=== PATIENT | female | born 1975 ===

== ENCOUNTER 2016-11-04 16:01 | Emergency (ER) | payer MEDICAID ==
[2016-11-04 16:01] VITALS: BMI 36.3
--- NOTE | 2016-11-04 17:29 | C.PDOC ---
History Of Present Illness 41 y/o female presents to the ED for evaluation of lower abdominal pain which began 3 days ago. Patient notes her pain radiates to her back with occasional nausea, frequency and dysuria. Patient denies fever, chills, and vomiting. denies vaginl discharge. Time Seen by Provider: 11/04/16 16:12 Chief Complaint (Nursing): Female Genitourinary History Per: Patient History/Exam Limitations: no limitations Onset/Duration Of Symptoms: Days Current Symptoms Are (Timing): Still Present Quality Of Discomfort: "Pain" Associated Symptoms: Nausea, Urinary Symptoms (+urinary frequency and dysuria ) . denies: Fever, Chills, Vomiting Additional History Per: Patient Abnormal Vaginal Bleeding: No Past Medical History Reviewed: Historical Data, Nursing Documentation, Vital Signs Vital Signs: Last Vital Signs Temp 98.7 F 11/04/16 16:11 Pulse 115 H 11/04/16 16:11 Resp 15 11/04/16 16:11 BP 127/83 11/04/16 16:11 Pulse Ox 99 11/04/16 21:07 - Medical History PMH: Anxiety, HTN (pt denies) Surgical History: (x 3) - [facility] Procedures BILAT TUBAL DIVISION NEC (09/28/13) LOW CERVICAL (09/28/13) Family History: States: No Known Family Hx - Social History Hx Tobacco Use: No Hx Alcohol Use: No Hx Substance Use: No - Immunization History Hx Tetanus Toxoid Vaccination: Yes Hx Influenza Vaccination: No Hx Pneumococcal Vaccination: No Review Of Systems Constitutional: Negative for: Fever, Chills Gastrointestinal: Positive for: Nausea, Abdominal Pain (lower ). Negative for: Vomiting Genitourinary: Positive for: Dysuria, Frequency Physical Exam - Physical Exam Appears: Non-toxic, No Acute Distress Skin: Normal Color, Warm, Dry Head: Atraumatic, Normacephalic Eye(s): bilateral: Normal Inspection Oral Mucosa: Moist Neck: Supple Chest: Symmetrical, No Deformity, No Tenderness Cardiovascular: Rhythm Regular, No Murmur Respiratory: Normal Breath Sounds, Accessory Muscle Use, No Rales, No Rhonchi, No Wheezing Gastrointestinal/Abdominal: Soft, Tenderness (suprapubic), No Guarding, No Rebound Back: CVA Tenderness (mild, right-sided ) Pelvic: No Normal Bimanual Exam, No Vaginal Bleeding, Vaginal Discharge, Cervical Motion Tenderness, Adnexal Tenderness, Other (bilateral adnexal tenderness, whitish discharge, +cmt) Extremity: Normal ROM, Capillary Refill (less than 2 seconds ) Neurological/Psych: Normal Speech, Normal Cognition Gait: Steady ED Course And Treatment - Laboratory Results Result Diagrams: 11/04/16 18:55 11/04/16 18:55 O2 Sat by Pulse Oximetry: 99 (on RA) Pulse Ox Interpretation: Normal - CT Scan/US CT A/P Other Rad Studies (CT/US): Interpreted By Me, Read By Radiologist, Radiology Report Reviewed CT/US Interpretation: EXAM: CT Abdomen and Pelvis Without Intravenous Contrast. CLINICAL HISTORY: 41 years old, female; Pain and signs and symptoms ; Other: Hematuria; Abdominal pain;. Generalized; Additional info: Hematuria CVA tender. TECHNIQUE: Axial computed tomography images of the abdomen and pelvis without intravenous contrast. This. CT exam was performed using one or more of the following dose reduction techniques: automated. exposure control, adjustment of the mA and/or kV according to patient size, and/or use of iterative. reconstruction technique. Coronal and sagittal reformatted images were created and reviewed. EXAM DATE/TIME: 11/04/2016 6:25 PM. COMPARISON: There are no prior studies for comparison. FINDINGS: Lower thorax: Heart size is normal. There is a small hiatal hernia. There is minimal atelectasis and. scarring at the lung bases. ABDOMEN: Liver: unremarkable. Gallbladder and bile ducts: unremarkable. Pancreas: Pancreas is mildly atrophic. Spleen: unremarkable. Adrenals: unremarkable. Kidneys and ureters: Kidneys and ureters are unremarkable. Stomach and bowel: Stomach is almost empty. Rotation is normal. There is no small bowel. obstruction. Terminal ileum is unremarkable.Appendix is not visualized.There is no pericecal. inflammation.Colon is incompletely distended which limits evaluation. Appendix : See stomach and bowel. PELVIS: Bladder: Urinary bladder is unremarkable. Reproductive: Uterus and adnexal structures are unremarkable. ABDOMEN and PELVIS: Intraperitoneal space: There is a small amount of free fluid in the pelvis There is no free air. Bones/joints: There are no acute osseous abnormalities. There is minimal spondylosis. Soft tissues: There is a small fat containing umbilical hernia. Vasculature: There are multiple phleboliths. Vascular structures are unremarkable. Lymph nodes: There is no pathologic adenopathy. IMPRESSION: No renal or ureteral stones or hydronephrosis; limited evaluation of kidneys due to. lack of intravenous contrast; no acute solid visceral or bowel abnormality. Medical Decision Making Medical Decision Making: Impression 41y/o F with lower abdominal pain, nausea, urinary frequency Plan: * CT Abd/Pel * CMP * CBC * Toradol * Urine culture * Urinalysis * Reassess and Disposition Progress: cT A/P ordered to evaluate for possible renal or urethral stones. 909 pm pt with cmt on pelivc exam, will tx for pid with ceftriaxone and doxycycline. pt to f/u with gynb later in week for re-eval. Disposition Counseled Patient/Family Regarding: Diagnosis, Need For Followup, Rx Given - Disposition Referrals: Charley Hernandez MD [Medical Doctor] - Disposition: HOME/ ROUTINE Disposition Time: 21:15 Condition: STABLE Additional Instructions: Siga con el Dr Hernandez o mendoza gineclogo en los prximos 2-3 townsend despus de milad la medicacin para la re-evaluacin. El antibitico prescrbied hace la piel de oyur sensible al mariano as que por favor use protector solar cuando est afuera con gustavo medcine. Vuelva al ER para cualquier empeoramiento de los sntomas. Prescriptions: Doxycycline Hyclate 100 mg PO BID #28 capsule Instructions: Pelvic Inflammatory Disease (ED) Forms: Gen Discharge Inst [facility] - Clinical Impression Clinical Impression: PID (acute pelvic inflammatory disease) - Scribe Statement The provider has reviewed the documentation as recorded by the Scribe (Gabrielle Richmond) All medical record entries made by the Scribe were at my direction and personally dictated by me. I have reviewed the chart and agree that the record accurately reflects my personal performance of the history, physical exam, medical decision making, and the department course for this patient. I have also personally directed, reviewed, and agree with the discharge instructions and disposition.
[2016-11-04 17:47] LABS: RBC URINE 13 /hpf (0-3); URINE BILIRUBIN NEGATIVE (NEGATIVE); URINE BLOOD 2+ (NEGATIVE); URINE COLOR Yellow (YELLOW); URINE GLUCOSE (UA) NORMAL (Normal); URINE KETONE NEGATIVE (NEGATIVE); URINE LEUKOCYTE ESTERASE NEG Leu/uL (Negative); URINE PROTEIN NEGATIVE (NEGATIVE); URINE UROBILINOGEN NORMAL mg/dL (0.2-1.0); WBC URINE 1 /hpf (0-5)
[2016-11-04 19:07] LABS: BASO % 0.4 % (0.0-2.0); EOS # 0.1 K/uL (0.0-0.7); EOS % 1.2 % (0.0-4.0); HEMATOCRIT 42.2 % (34.0-47.0); LYMPH # 3.5 K/uL (1.0-4.3); LYMPH % 40.4 % (20.0-40.0); MEAN CELL VOLUME 84.1 fL (81.0-99.0); MEAN CORPUSCULAR HEMOGLOBIN 27.3 pg (27.0-31.0); MEAN CORPUSCULAR HGB CONC 32.5 g/dL (33.0-37.0); MEAN PLATELET VOLUME 8.6 fL (7.2-11.7); MONO # 0.6 K/uL (0.0-0.8); MONO % 6.8 % (0.0-10.0); RED CELL DISTRIBUTION WIDTH 13.5 % (11.5-14.5); WHITE BLOOD COUNT 8.7 K/uL (4.8-10.8)
[2016-11-04 19:20] LABS: CHLORIDE 98 mmol/L (98-107); SODIUM 138 mmol/L (132-148)
[2016-11-04 19:21] LABS: POTASSIUM 3.7 mmol/L (3.6-5.2)
[2016-11-04 19:23] LABS: ALKALINE PHOSPHATASE 76 U/L (38-126); AST/SGOT 21 U/L (14-36); BILIRUBIN,TOTAL 0.5 mg/dL (0.2-1.3); BLOOD UREA NITROGEN 16 mg/dL (7-17); CARBON DIOXIDE 28 mmol/L (22-30); GFR AFRICAN-AMERICAN > 60; GLUCOSE,RANDOM 101 mg/dL (65-105); TOTAL PROTEIN 8.4 g/dL (6.3-8.3)
[2016-11-04 19:24] LABS: ALT/SGPT 23 U/L (9-52); CALCIUM 9.1 mg/dl (8.6-10.4)
--- NOTE | 2016-11-04 19:59 | CT ---
EXAM: CT Abdomen and Pelvis Without Intravenous Contrast CLINICAL HISTORY: 41 years old, female; Pain and signs and symptoms; Other: Hematuria; Abdominal pain; Generalized; Additional info: Hematuria CVA tender TECHNIQUE: Axial computed tomography images of the abdomen and pelvis without intravenous contrast. This CT exam was performed using one or more of the following dose reduction techniques: automated exposure control, adjustment of the mA and/or kV according to patient size, and/or use of iterative reconstruction technique. Coronal and sagittal reformatted images were created and reviewed. EXAM DATE/TIME: 11/04/2016 6:25 PM COMPARISON: There are no prior studies for comparison. FINDINGS: Lower thorax: Heart size is normal. There is a small hiatal hernia. There is minimal atelectasis and scarring at the lung bases ABDOMEN: Liver: unremarkable Gallbladder and bile ducts: unremarkable Pancreas: Pancreas is mildly atrophic. Spleen: unremarkable Adrenals: unremarkable Kidneys and ureters: Kidneys and ureters are unremarkable. Stomach and bowel: Stomach is almost empty. Rotation is normal. There is no small bowel obstruction. Terminal ileum is unremarkable.Appendix is not visualized.There is no pericecal inflammation.Colon is incompletely distended which limits evaluation. Appendix: See stomach and bowel PELVIS: Bladder: Urinary bladder is unremarkable. Reproductive: Uterus and adnexal structures are unremarkable. ABDOMEN and PELVIS: Intraperitoneal space: There is a small amount of free fluid in the pelvis There is no free air. Bones/joints: There are no acute osseous abnormalities. There is minimal spondylosis Soft tissues: There is a small fat containing umbilical hernia. Vasculature: There are multiple phleboliths. Vascular structures are unremarkable. Lymph nodes: There is no pathologic adenopathy. IMPRESSION: No renal or ureteral stones or hydronephrosis; limited evaluation of kidneys due to lack of intravenous contrast; no acute solid visceral or bowel abnormality
[2016-11-04] MEDS ORDERED: cefTRIAXone (Rocephin) 250 mg Inj IM STA (21:02)
[2016-11-04] MEDS ORDERED: Lidocaine 1% Inj (20ml) ONE (21:36)
[2016-11-04 22:10] VITALS: BP 142/94; PULSE 89; RESP 20; TEMP 97.3
[2016-11-04 22:56] VITALS: O2SAT 99
== END 2016-11-04 22:00 | disposition home or self-care (01) ==
LOC: C.ER 16:01
DX: N73.9 Female pelvic inflammatory disease, unspecified (principal)
CPT/HCPCS: 74176; 80053; 81001; 85025; 87086; 96372; 96374; 99285; J0696; J1885

== ENCOUNTER 2017-02-17 18:09 | Emergency (ER) | payer MEDICAID ==
[2017-02-17 18:09] VITALS: BMI 36.3
[2017-02-17 18:19] VITALS: RESP 18; O2SAT 100
[2017-02-17 18:53] LABS: RBC URINE 5 /hpf (0-3); URINE BILIRUBIN NEGATIVE (NEGATIVE); URINE BLOOD 3+ (NEGATIVE); URINE COLOR Yellow (YELLOW); URINE GLUCOSE (UA) NORMAL (Normal); URINE KETONE NEGATIVE (NEGATIVE); URINE LEUKOCYTE ESTERASE NEG Leu/uL (Negative); URINE PROTEIN NEGATIVE (NEGATIVE); URINE UROBILINOGEN NORMAL mg/dL (0.2-1.0); WBC URINE 1 /hpf (0-5)
[2017-02-17] MEDS ORDERED: Sodium Chloride 0.9% 1,000 ML IV ONE (19:13)
[2017-02-17] MEDS ORDERED: Iohexol 240 (50 ml) PO ONE (19:16)
--- NOTE | 2017-02-17 19:19 | C.PDOC ---
History Of Present Illness 41 y/o female c/o upper abdominal pain and SOB for a month. Abdominal pain is worse after eating. Denies nausea, vomiting, diarrhea, or fever. No dysuria. No cough or chest pain. Time Seen by Provider: 02/17/17 19:16 Chief Complaint (Nursing): GI Problem History Per: Patient History/Exam Limitations: no limitations Onset/Duration Of Symptoms: Days (a month) Current Symptoms Are (Timing): Still Present Severity: Mild Location Of Pain/Discomfort: Epigastric, LUQ Radiation Of Pain To:: None Quality Of Discomfort: "Pain" Associated Symptoms: denies: Fever, Chills, Nausea, Vomiting, Diarrhea Exacerbating Factors: Food (After eating) Recent travel outside of the [place]: No Additional History Per: Patient Past Medical History Reviewed: Historical Data, Nursing Documentation, Vital Signs Vital Signs: Last Vital Signs Temp 97.7 F 02/17/17 22:00 Pulse 75 02/17/17 22:00 Resp 18 02/17/17 22:00 BP 113/77 02/17/17 22:00 Pulse Ox 100 02/17/17 22:00 - Medical History PMH: Anxiety, HTN (pt denies) Surgical History: (x 3) - [facility] Procedures BILAT TUBAL DIVISION NEC (09/28/13) LOW CERVICAL (09/28/13) Family History: States: Unknown Family Hx - Social History Hx Tobacco Use: No Hx Alcohol Use: No Hx Substance Use: No - Immunization History Hx Tetanus Toxoid Vaccination: Yes Hx Influenza Vaccination: No Hx Pneumococcal Vaccination: No Review Of Systems Except As Marked, All Systems Reviewed And Found Negative. Constitutional: Negative for: Fever, Chills Cardiovascular: Negative for: Chest Pain Respiratory: Positive for: Shortness of Breath. Negative for: Cough Gastrointestinal: Positive for: Abdominal Pain. Negative for: Nausea, Vomiting , Diarrhea Genitourinary: Negative for: Dysuria Physical Exam - Physical Exam Appears: Non-toxic, No Acute Distress Skin: Warm, Dry Head: Atraumatic, Normacephalic Cardiovascular: Rhythm Regular Respiratory: Normal Breath Sounds, No Rales, No Rhonchi, No Wheezing Gastrointestinal/Abdominal: Soft, Tenderness (Epigastric and LUQ), No Guarding, No Rebound Back: No CVA Tenderness Neurological/Psych: Oriented x3, Normal Speech ED Course And Treatment - Laboratory Results Result Diagrams: 02/17/17 19:46 02/17/17 19:46 O2 Sat by Pulse Oximetry: 100 (RA) Pulse Ox Interpretation: Normal Medical Decision Making Medical Decision Making: Impression: * upper abdominal pain and SOB for a month. Plans: * CT Abd/ Pel PO and IV contrast * Blood labs * CXR * Bentyl * Omnipaque * IV fluids Disposition Counseled Patient/Family Regarding: Diagnosis - Disposition Referrals: [facility] [Outside] Disposition: HOME/ ROUTINE Disposition Time: 23:20 Condition: STABLE Prescriptions: Pantoprazole Sodium [Protonix] 20 mg PO DAILY #20 tablet.dr Instructions: Gastroesophageal Reflux Disease (ED), Gastritis (GEN), Diet for Ulcers and Gastritis (ED) Forms: [facility] ([place]), Gen Discharge Inst Russian Print Language: GREENLANDIC - POA Present On Arrival: None - Clinical Impression Clinical Impression: Gastritis, GERD (gastroesophageal reflux disease) - Scribe Statement The provider has reviewed the documentation as recorded by the Scribe Gume cloud All medical record entries made by the Scribe were at my direction and personally dictated by me. I have reviewed the chart and agree that the record accurately reflects my personal performance of the history, physical exam, medical decision making, and the department course for this patient. I have also personally directed, reviewed, and agree with the discharge instructions and disposition.
[2017-02-17] MEDS ORDERED: Iohexol 240 (50 ml) ONE (19:45)
[2017-02-17] MEDS ORDERED: Sodium Chloride 0.9% 1,000 ML ONE (19:45)
[2017-02-17 19:50] LABS: BASO % 0.4 % (0.0-2.0); EOS # 0.1 K/uL (0.0-0.7); EOS % 1.6 % (0.0-4.0); HEMATOCRIT 40.6 % (34.0-47.0); LYMPH # 3.4 K/uL (1.0-4.3); LYMPH % 45.4 % (20.0-40.0); MEAN CELL VOLUME 84.4 fL (81.0-99.0); MEAN CORPUSCULAR HGB CONC 33.2 g/dL (33.0-37.0); MEAN PLATELET VOLUME 8.5 fL (7.2-11.7); MONO # 0.5 K/uL (0.0-0.8); MONO % 7.2 % (0.0-10.0); WHITE BLOOD COUNT 7.5 K/uL (4.8-10.8)
[2017-02-17 19:57] LABS: CHLORIDE 99 mmol/L (98-107)
[2017-02-17 19:58] LABS: POTASSIUM 3.7 mmol/L (3.6-5.2); SODIUM 136 mmol/L (132-148)
[2017-02-17 20:00] LABS: ALKALINE PHOSPHATASE 65 U/L (38-126); AST/SGOT 19 U/L (14-36); BILIRUBIN,TOTAL 0.5 mg/dL (0.2-1.3); CARBON DIOXIDE 27 mmol/L (22-30); GFR AFRICAN-AMERICAN > 60; TOTAL PROTEIN 8.7 g/dL (6.3-8.3)
[2017-02-17 20:01] LABS: ALT/SGPT 30 U/L (9-52); BLOOD UREA NITROGEN 16 mg/dL (7-17); CALCIUM 9.2 mg/dl (8.6-10.4); GLUCOSE,RANDOM 104 mg/dL (65-105)
[2017-02-17 23:39] VITALS: BP 102/73; PULSE 73; TEMP 97.9
--- NOTE | 2017-02-18 08:24 | CT ---
PROCEDURE: CT Abdomen and Pelvis with contrast HISTORY: Abdominal pain COMPARISON: None. TECHNIQUE: Multiple contiguous axial images were performed through the abdomen and pelvis with the use of intravenous contrast. 100 cc of Visipaque 320 intravenous contrast was administered. Radiation dose: Total exam DLP = 739 mGy-cm. This CT exam was performed using one or more of the following dose reduction techniques: Automated exposure control, adjustment of the mA and/or kV according to patient size, and/or use of iterative reconstruction technique. FINDINGS: LOWER THORAX: Mild scattered atelectasis. LIVER: Unremarkable. No gross lesion or ductal dilatation. GALLBLADDER AND BILE DUCTS: Unremarkable. PANCREAS: Unremarkable. No gross lesion or ductal dilatation. SPLEEN: Unremarkable. ADRENALS: Unremarkable. No mass. KIDNEYS AND URETERS: Mild cortical thinning and areas of mild scar formation in the upper pole of the right kidney. Small sub centimeter hypodensity in the upper pole of the right kidney, too small to adequately characterize. VASCULATURE: Unremarkable. No aortic aneurysm. BOWEL: Fecal retention in the colon. APPENDIX: No findings to suggest acute appendicitis. Appendix not well visualized. PERITONEUM: Unremarkable. No free fluid. No free air. LYMPH NODES: Unremarkable. No enlarged lymph nodes. BLADDER: Decompressed urinary bladder. REPRODUCTIVE: Multiple benign fibroids in the uterus. Small left ovarian cyst measuring 1.7 centimeters. BONES: No acute fracture. OTHER FINDINGS: Small amount of physiologic free fluid present. Small fat containing paraumbilical hernia present. IMPRESSION: Mild cortical thinning and areas of mild scar formation in the upper pole of the right kidney. Although considered less likely a mild or early acute pyelonephritis cannot entirely be excluded. Clinical correlation. Small sub centimeter hypodensity in the upper pole of the right kidney, too small to adequately characterize. Small fibroids. Small left ovarian cyst. Physiologic fluid within the pelvis. Fecal retention in the colon. Appendix not well visualized. These findings were preliminarily reported at 10:35 p.m. on 02/17/[address] Sakshi Crespo from [place].
--- NOTE | 2017-02-18 08:29 | RAD ---
HISTORY: COMPARISON: 01/07/2016. TECHNIQUE: Chest PA and lateral FINDINGS: LINES AND TUBES: None. LUNG AND PLEURA: The lungs are well inflated and clear. HEART AND MEDIASTINUM: The heart is not enlarged. The hilar and mediastinal contours are within normal limits. SKELETAL STRUCTURES: The bony structures are within normal limits for the patient's age. VISUALIZED UPPER ABDOMEN: Normal. OTHER FINDINGS: None. IMPRESSION: No active pulmonary disease.
== END 2017-02-17 23:46 | disposition home or self-care (01) ==
LOC: C.ER 18:09
DX: K29.70 Gastritis, unspecified, without bleeding (principal); K21.9 Gastro-esophageal reflux disease without esophagitis
CPT/HCPCS: 71020; 74177; 80053; 81001; 83690; 84703; 85025; 96372; 99285; J0500; J7040; Q9966

== ENCOUNTER 2017-02-21 12:38 | Emergency (ER) | payer MEDICAID ==
[2017-02-21 12:38] VITALS: BMI 36.3
[2017-02-21 12:43] VITALS: TEMP 98.2
[2017-02-21] MEDS ORDERED: Alum-Mag Hydrox-Simethicone Susp (30 mL) PO STA (13:25)
--- NOTE | 2017-02-21 13:30 | C.PDOC ---
Time Seen by Provider: 02/21/17 13:12 Chief Complaint (Nursing): Abdominal Pain History Per: Patient Onset/Duration Of Symptoms: Days (about 2 weeks), Intermittent Episodes Current Symptoms Are (Timing): Better Severity: Moderate Location Of Pain/Discomfort: Epigastric Quality Of Discomfort: Burning Associated Symptoms: Nausea, Constipation Exacerbating Factors: Food Last Bowel Movement: Days Ago (4) Additional History Per: Prior Records Past Medical History Reviewed: Historical Data, Nursing Documentation, Vital Signs Vital Signs: Last Vital Signs Temp 98.2 F 02/21/17 12:41 Pulse 97 H 02/21/17 12:41 Resp 20 02/21/17 12:41 BP 144/93 H 02/21/17 12:41 Pulse Ox 98 02/21/17 12:41 - Medical History PMH: Anxiety, Gastritis, HTN (pt denies) Surgical History: (x 3) - [facility] Procedures BILAT TUBAL DIVISION NEC (09/28/13) LOW CERVICAL (09/28/13) Family History: States: Unknown Family Hx - Social History Hx Tobacco Use: No Hx Alcohol Use: No Hx Substance Use: No - Immunization History Hx Tetanus Toxoid Vaccination: Yes Hx Influenza Vaccination: No Hx Pneumococcal Vaccination: No Review Of Systems Except As Marked, All Systems Reviewed And Found Negative. Constitutional: Negative for: Fever Cardiovascular: Negative for: Chest Pain Respiratory: Negative for: Hemoptysis Gastrointestinal: Positive for: Constipation. Negative for: Vomiting, Diarrhea , Melena, Hematochezia, Hematemesis Genitourinary: Negative for: Dysuria Musculoskeletal: Negative for: Back Pain Skin: Negative for: Rash Neurological: Negative for: Weakness, Numbness Physical Exam - Physical Exam Appears: Non-toxic, No Acute Distress Skin: Normal Color, Warm, Dry, No Rash Head: Atraumatic, Normacephalic Eye(s): bilateral: Normal Inspection, PERRL, EOMI Oral Mucosa: Moist Neck: Normal ROM, Supple Cardiovascular: Rhythm Regular Respiratory: Normal Breath Sounds, No Accessory Muscle Use Gastrointestinal/Abdominal: Soft, No Tenderness, No Distention Back: No CVA Tenderness Extremity: Normal ROM Neurological/Psych: Oriented x3, Normal Motor, Normal Sensation ED Course And Treatment O2 Sat by Pulse Oximetry: 98 Pulse Ox Interpretation: Normal Reassessment Condition: Improved Disposition Counseled Patient/Family Regarding: Studies Performed, Diagnosis, Need For Followup, Rx Given - Disposition Referrals: Charley Hernandez MD [Medical Doctor] - Disposition: HOME/ ROUTINE Disposition Time: 13:37 Condition: IMPROVED Additional Instructions: Follow up with your doctor within 1-2 weeks for further evaluation and treatment , including possible upper endoscopy. Return to the ER if you develop fever, vomiting, black stools, worsening of symptoms or if you have any other concerns. Prescriptions: Famotidine [Pepcid] 20 mg PO BID #30 tab Metoclopramide [Reglan] 1 tab PO TID PRN #15 tab PRN Reason: Nausea/Vomiting Polyethylene Glycol 3350 [Miralax] 17 gm PO DAILY #7 packet Instructions: Gastritis (ED) Forms: [email or web address] (Japanese) Print Language: MACANESE - Clinical Impression Clinical Impression: Epigastric abdominal pain
[2017-02-21] MEDS ORDERED: Aluminum Hydroxide/Magnesium Hydroxide Susp (30 mL) ONE (13:37)
[2017-02-21 14:03] VITALS: BP 131/86; PULSE 86; O2SAT 99
[2017-02-21 14:07] VITALS: RESP 18
== END 2017-02-21 14:12 | disposition home or self-care (01) ==
LOC: C.ER 12:38
DX: R10.13 Epigastric pain (principal)

== ENCOUNTER 2017-03-26 18:42 | Emergency (ER) | payer MEDICAID ==
[2017-03-26 18:43] VITALS: BMI 36.3
[2017-03-26 19:37] VITALS: RESP 18
--- NOTE | 2017-03-26 20:11 | C.PDOC ---
History Of Present Illness Patient presents to the ER with a complaint of dull, aching RUQ and epigastric pain. Patient reports she [place] [facility] [place] Denies fever, chills, nausea, or vomiting. Time Seen by Provider: 03/26/17 20:10 Chief Complaint (Nursing): Abdominal Pain History Per: Patient History/Exam Limitations: no limitations Onset/Duration Of Symptoms: Hrs Current Symptoms Are (Timing): Still Present Severity: Mild Pain Scale Rating Of: 4 Location Of Pain/Discomfort: RUQ, Epigastric Radiation Of Pain To:: None Quality Of Discomfort: Dull, Aching Associated Symptoms: denies: Fever, Chills Exacerbating Factors: None Alleviating Factors: None Recent travel outside of the [place]: No Abnormal Vaginal Bleeding: No Past Medical History Reviewed: Historical Data, Nursing Documentation, Vital Signs Vital Signs: Last Vital Signs Temp 97.6 F 03/26/17 23:28 Pulse 76 03/26/17 23:28 Resp 18 03/26/17 23:28 BP 111/77 03/26/17 23:28 Pulse Ox 99 03/26/17 23:28 - Medical History PMH: Anxiety, Gastritis, HTN (pt denies) Surgical History: Cholecystectomy (02/19), (x 3) - [facility] Procedures BILAT TUBAL DIVISION NEC (09/28/13) LOW CERVICAL (09/28/13) Family History: States: No Known Family Hx - Social History Hx Tobacco Use: No Hx Alcohol Use: No Hx Substance Use: No - Immunization History Hx Tetanus Toxoid Vaccination: Yes Hx Influenza Vaccination: Yes Hx Pneumococcal Vaccination: No Review Of Systems Constitutional: Negative for: Fever, Chills Gastrointestinal: Positive for: Abdominal Pain. Negative for: Nausea, Vomiting Physical Exam - Physical Exam Appears: Non-toxic Skin: Warm, Dry Head: Normacephalic Oral Mucosa: Moist Chest: Symmetrical Cardiovascular: Rhythm Regular Respiratory: No Rales, No Rhonchi, No Wheezing Gastrointestinal/Abdominal: Soft, Tenderness (Mid epigastric and RUQ), No Guarding, No Rebound Neurological/Psych: Oriented x3 ED Course And Treatment - Laboratory Results Result Diagrams: 03/26/17 20:21 03/26/17 20:21 O2 Sat by Pulse Oximetry: 100 (Room air) Pulse Ox Interpretation: Normal Progress Note: Blood work, urinalysis, and abdominal US ordered. Reevaluation Time: 00:16 Reassessment Condition: Improved Disposition Counseled Patient/Family Regarding: Studies Performed, Diagnosis, Need For Followup, Rx Given - Disposition Referrals: Clinic,Med Surg [Primary Care Provider] - Disposition: HOME/ ROUTINE Disposition Time: 20:11 Condition: FAIR Additional Instructions: Please return if symptoms recur Prescriptions: Naproxen [Naprosyn] 1 tab PO BID PRN #25 tab PRN Reason: Pain Instructions: Abdominal Pain (ED), Gas and Bloating (ED) Forms: [employer] (Italian) Print Language: [place] - Clinical Impression Clinical Impression: Abdominal pain - Scribe Statement The provider has reviewed the documentation as recorded by the Scribmariaelena Adamson All medical record entries made by the Pierreibmariaelena were at my direction and personally dictated by me. I have reviewed the chart and agree that the record accurately reflects my personal performance of the history, physical exam, medical decision making, and the department course for this patient. I have also personally directed, reviewed, and agree with the discharge instructions and disposition.
[2017-03-26 20:26] LABS: BASO % 0.6 % (0.0-2.0); EOS # 0.1 K/uL (0.0-0.7); EOS % 2.1 % (0.0-4.0); HEMATOCRIT 38.8 % (34.0-47.0); LYMPH # 2.8 K/uL (1.0-4.3); MEAN CELL VOLUME 85.4 fL (81.0-99.0); MEAN CORPUSCULAR HGB CONC 32.8 g/dL (33.0-37.0); MEAN PLATELET VOLUME 9.6 fL (7.2-11.7); MONO # 0.4 K/uL (0.0-0.8); MONO % 7.4 % (0.0-10.0); NRBC % 0.1 % (0.0-2.0); RED CELL DISTRIBUTION WIDTH 13.5 % (11.5-14.5); WHITE BLOOD COUNT 5.6 K/uL (4.8-10.8)
[2017-03-26 20:37] LABS: INR 1.1
[2017-03-26 20:49] LABS: ALB/GLOB RATIO 1.4 (1.0-2.1); ALKALINE PHOSPHATASE 73 U/L (38-126); ALT/SGPT 109 U/L (9-52); AST/SGOT 54 U/L (14-36); BILIRUBIN,TOTAL 1.4 mg/dL (0.2-1.3); BLOOD UREA NITROGEN 7 mg/dL (7-17); CALCIUM 8.8 mg/dl (8.6-10.4); CARBON DIOXIDE 26 mmol/L (22-30); CHLORIDE 99 mmol/L (98-107); GFR AFRICAN-AMERICAN > 60; GLUCOSE,RANDOM 100 mg/dL (65-105); POTASSIUM 3.4 mmol/L (3.6-5.2); SODIUM 136 mmol/L (132-148); TOTAL PROTEIN 7.3 g/dL (6.3-8.3)
[2017-03-26 20:53] LABS: RBC URINE 111 /hpf (0-3); URINE BACTERIA OCC (<OCC); URINE BILIRUBIN NEGATIVE (NEGATIVE); URINE BLOOD 3+ (NEGATIVE); URINE COLOR Yellow (YELLOW); URINE GLUCOSE (UA) NORMAL (Normal); URINE KETONE TRACE mg/dL (NEGATIVE); URINE LEUKOCYTE ESTERASE NEG Leu/uL (Negative); URINE PROTEIN 1+ mg/dL (NEGATIVE); URINE UROBILINOGEN NORMAL mg/dL (0.2-1.0); WBC URINE 1 /hpf (0-5)
--- NOTE | 2017-03-26 22:59 | US ---
EXAM: US Abdomen Limited, Right Upper Quadrant CLINICAL HISTORY: 41 years old, female; Pain; Abdominal pain; Generalized; Prior surgery; Surgery date: <1 month; Surgery type: Gb removed 02-28-17; Additional info: Ruq pain, S/P keshia TECHNIQUE: Real-time ultrasound of the right upper quadrant with image documentation. COMPARISON: No relevant prior studies available. FINDINGS: Liver: Normal echogenicity. No mass. No intrahepatic bile duct dilatation. Gallbladder: Cholecystectomy. Common bile duct: No dilatation. No stones. Pancreas: Unremarkable as visualized. Right kidney: Normal echogenicity. Lobulated contour. No hydronephrosis. IMPRESSION: 1.No acute findings. 2.Non-acute findings are described above.
[2017-03-26] MEDS ORDERED: Iodixanol 320 MG/ML 100 ML BOTTLE IV ONE (23:35)
--- NOTE | 2017-03-27 00:01 | CT ---
EXAM: CT Abdomen and Pelvis With Intravenous Contrast CLINICAL HISTORY: 41 years old, female; Pain; Abdominal pain; Prior surgery; Surgery type: Choleyctomy; Patient HX: 02-17-17; Additional info: Abd pain, S/P keshia, elevated lipase TECHNIQUE: Axial computed tomography images of the abdomen and pelvis with intravenous contrast. All CT scans at this facility use one or more dose reduction techniques, viz.: automated exposure control; ma/kV adjustment per patient size (including targeted exams where dose is matched to indication; i.e. head); or iterative reconstruction technique. Coronal and sagittal reformatted images were created and reviewed. CONTRAST: 100 mL of [id number] administered intravenously. COMPARISON: CT - ABD PELVIS PO IV CONTRAST 2017-02-17 21:39 FINDINGS: Limitations: Motion artifact - mild. Lower thorax: No acute findings. ABDOMEN: Liver: Unremarkable. No mass. Gallbladder and bile ducts: Cholecystectomy. No ductal dilation. Pancreas: No definite peripancreatic stranding. No ductal dilation. Spleen: No splenomegaly. Adrenals: No mass. Kidneys and ureters: Mild scarring of RIGHT kidney. No hydronephrosis. Stomach and bowel: No definite mural thickening. No obstruction. Appendix: Normal caliber. No inflammation. PELVIS: Bladder: Unremarkable. Reproductive: Possible small fibroid. ABDOMEN and PELVIS: Intraperitoneal space: Trace free fluid within pelvis. No free air. Bones/joints: No acute fracture. Soft tissues: Tiny umbilical hernia containing fat. Vasculature: Unremarkable. No aneurysm. Lymph nodes: No pathologically enlarged lymph nodes. IMPRESSION: 1. No definite acute intraabdominal abnormality. 2. Incidental/non-acute findings are described above.
[2017-03-27 00:34] VITALS: BP 115/73; PULSE 73; TEMP 98; O2SAT 98
== END 2017-03-27 00:35 | disposition home or self-care (01) ==
LOC: SUPCPDRO 18:42 → C.ER 18:42
DX: R10.9 Unspecified abdominal pain (principal)
CPT/HCPCS: 74177; 76705; 80053; 81001; 83690; 84703; 85025; 85610; 85730; 99285; Q9967

== ENCOUNTER 2017-04-12 16:53 | Emergency (ER) | payer MEDICAID ==
[2017-04-12 16:53] VITALS: BMI 36.3
[2017-04-12 17:02] VITALS: BP 109/73; PULSE 80; RESP 20; TEMP 98.2; O2SAT 100
--- NOTE | 2017-04-12 17:21 | C.PDOC ---
History Of Present Illness 41 yr old female presents to the ER for evaluation of right arm pain since this morning today, which is worsened with movement. Patient reports she slept funny on her arm and woke up with the pain. Patient denies chest pain, SOB, neck pain , weakness or numbness. Time Seen by Provider: 04/12/17 17:04 Chief Complaint (Nursing): Upper Extremity Problem/Injury History Per: Patient History/Exam Limitations: no limitations Onset/Duration Of Symptoms: Sudden Onset (Since waking up) Past Medical History Reviewed: Historical Data, Nursing Documentation, Vital Signs Vital Signs: Last Vital Signs Temp 98.2 F 04/12/17 17:02 Pulse 80 04/12/17 17:02 Resp 20 04/12/17 17:02 BP 109/73 04/12/17 17:02 Pulse Ox 100 04/12/17 18:41 - Medical History PMH: Anxiety, Gastritis, HTN (pt denies) Surgical History: Cholecystectomy (02/19), (x 3) - [facility] Procedures BILAT TUBAL DIVISION NEC (09/28/13) LOW CERVICAL (09/28/13) Family History: States: No Known Family Hx - Social History Hx Tobacco Use: No Hx Alcohol Use: No Hx Substance Use: No - Immunization History Hx Tetanus Toxoid Vaccination: Yes Hx Influenza Vaccination: Yes Hx Pneumococcal Vaccination: No Review Of Systems Except As Marked, All Systems Reviewed And Found Negative. Cardiovascular: Negative for: Chest Pain Respiratory: Negative for: Shortness of Breath Musculoskeletal: Positive for: Arm Pain (Right arm). Negative for: Neck Pain Neurological: Negative for: Weakness, Numbness Physical Exam - Physical Exam Appears: Non-toxic, No Acute Distress Skin: Warm, Dry, No Rash Head: Atraumatic, Normacephalic Eye(s): bilateral: Normal Inspection Oral Mucosa: Moist Neck: Normal, Normal ROM, Supple Chest: Symmetrical, No Tenderness Cardiovascular: Rhythm Regular, No Friction Rub, No Murmur Respiratory: Normal Breath Sounds, No Rales, No Rhonchi, No Wheezing Back: Normal Inspection, No CVA Tenderness Extremity: Normal ROM, Tenderness (Right arm, lateral right arm tenderness), No Swelling Neurological/Psych: Oriented x3, Normal Speech, Normal Motor Gait: Steady ED Course And Treatment O2 Sat by Pulse Oximetry: 100 (RA) Pulse Ox Interpretation: Normal Medical Decision Making Medical Decision Making: On re-exam, the patient reports improvement of symptoms. Pulse ox is 96% on RA. Lungs are CTA, heart is RRR. Abdomen is soft, non-tender and tolerating PO well. Ambulatory in the ED with steady gait. Follow up with the medical doctor within 1-2 days, Return if worsened. Disposition - Disposition Referrals: [facility] at [facility] [Outside] Disposition: HOME/ ROUTINE Disposition Time: 18:37 Condition: GOOD Additional Instructions: Follow up with the medical doctor within 1-2 days. 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 - Scribe Statement The provider has reviewed the documentation as recorded by the Scribe Payal Martin All medical record entries made by the Scribe were at my direction and personally dictated by me. I have reviewed the chart and agree that the record accurately reflects my personal performance of the history, physical exam, medical decision making, and the department course for this patient. I have also personally directed, reviewed, and agree with the discharge instructions and disposition.
== END 2017-04-12 19:05 | disposition home or self-care (01) ==
LOC: C.ER 16:53
DX: M54.12 Radiculopathy, cervical region (principal)
CPT/HCPCS: 96372; 99283; J1885

== ENCOUNTER → 2017-05-31 19:42 | Emergency (ER) | payer MEDICAID ==
[2017-05-31 19:43] VITALS: BMI 36.3
== END | disposition left against medical advice (07) ==
LOC: C.ER 19:42
DX: Z02.89 Encounter for other administrative examinations (principal); M54.5 Low back pain

== ENCOUNTER 2017-07-12 23:47 | Emergency (ER) | payer MEDICAID ==
[2017-07-12 23:48] VITALS: BMI 36.3
[2017-07-13 00:54] LABS: HCG,QUALITATIVE URINE NEGATIVE (NEGATIVE); URINE BACTERIA RARE (<OCC); URINE BILIRUBIN NEGATIVE (NEGATIVE); URINE BLOOD NEGATIVE (NEGATIVE); URINE CLARITY Hazy (Clear); URINE COLOR Straw (YELLOW); URINE GLUCOSE (UA) NORMAL (Normal); URINE LEUKOCYTE ESTERASE 3+ Leu/uL (Negative); URINE PROTEIN NEGATIVE (NEGATIVE); URINE UROBILINOGEN NORMAL mg/dL (0.2-1.0)
--- NOTE | 2017-07-13 01:17 | C.PDOC ---
History Of Present Illness The patient reports 2 day history of dysuria and urinary frequency which is associated with suprapubic pain. Patient also reports itchy white vaginal discharge which is assovciated with irritation of the skin. Denies fever, back pain, nausea, vomiting, hematuria, chest pain, or SOB. Time Seen by Provider: 07/13/17 00:02 Chief Complaint (Nursing): Female Genitourinary History Per: Patient History/Exam Limitations: no limitations Onset/Duration Of Symptoms: Days Current Symptoms Are (Timing): Still Present (2) Quality Of Discomfort: Burning Associated Symptoms: Urinary Symptoms (dysuria). denies: Fever, Chills, Nausea , Vomiting, Diarrhea, Loss Of Appetite, Back Pain, Chest Pain, Constipation Alleviating Factors: None Recent travel outside of the [place]: No Abnormal Vaginal Bleeding: No Past Medical History Reviewed: Historical Data, Nursing Documentation, Vital Signs Vital Signs: Last Vital Signs Temp 98 F 07/13/17 01:48 Pulse 87 07/13/17 01:48 Resp 20 07/13/17 01:48 BP 117/76 07/13/17 01:48 Pulse Ox 98 07/14/17 13:36 - Medical History PMH: Anxiety, Gastritis, HTN (pt denies) Surgical History: Cholecystectomy (02/19), (x 3) - [facility] Procedures BILAT TUBAL DIVISION NEC (09/28/13) LOW CERVICAL (09/28/13) Family History: States: Unknown Family Hx - Social History Hx Tobacco Use: No Hx Alcohol Use: No Hx Substance Use: No - Immunization History Hx Tetanus Toxoid Vaccination: Yes Hx Influenza Vaccination: Yes Hx Pneumococcal Vaccination: No Review Of Systems Except As Marked, All Systems Reviewed And Found Negative. Physical Exam - Physical Exam Appears: Non-toxic, No Acute Distress Skin: Normal Color, Warm, No Rash Head: Atraumatic, Normacephalic Eye(s): bilateral: Normal Inspection, PERRL, EOMI Oral Mucosa: Moist Throat: No Erythema, No Exudate Neck: Normal ROM, Supple Chest: Symmetrical Cardiovascular: Rhythm Regular, No Friction Rub, No Murmur Respiratory: Normal Breath Sounds, No Rales, No Rhonchi, No Wheezing Gastrointestinal/Abdominal: Bowel Sounds (active), Soft, Tenderness (suprapubic) , No Guarding, No Rebound Back: Normal Inspection, No CVA Tenderness Pelvic: Normal Bimanual Exam, No Vaginal Bleeding, Vaginal Discharge (white discharge. White/pink irritation externally), No Cervical Motion Tenderness, No Adnexal Tenderness, No Mass, Other (Special Class Welder: Glenis CARRASCO) Extremity: Normal ROM, No Swelling Neurological/Psych: Oriented x3, Normal Speech, Normal Motor Gait: Steady ED Course And Treatment O2 Sat by Pulse Oximetry: 98 (ON ra) Pulse Ox Interpretation: Normal Medical Decision Making Medical Decision Making: UA is (+) for UTI. Patient treated with Cipro. Disposition - Disposition Referrals: Charley Hernandez MD [Medical Doctor] - Disposition: HOME/ ROUTINE Disposition Time: 01:13 Condition: GOOD Additional Instructions: Follow up with the medical doctor/clinic within 1-2 days, Return if worsened, Prescriptions: Aluminum Hydroxide/Magnesium [Maalox Plus 30 ml] 30 ml PO BID #300 ml Ciprofloxacin [Cipro] 1 tab PO BID #14 tab Fluconazole [Diflucan] 150 mg PO ONCE #2 tab Ibuprofen [Motrin] 1 tab PO TID PRN #30 tab PRN Reason: Pain Miconazole 2% Vaginal [Monistat 7 Vaginal Cream] 1 ea VG BID #1 tube Phenazopyridine HCl [Pyridium] 200 mg PO TID #7 tablet Instructions: Urinary Tract Infections in Adults Forms: [employer] (Nepalese) Print Language: NEPALESE - Clinical Impression Clinical Impression: UTI (urinary tract infection), Candidal vaginitis
[2017-07-13] MEDS ORDERED: Alum-Mag Hydrox-Simethicone Susp (30 mL) PO STA (01:29)
[2017-07-13] MEDS ORDERED: Alum-Mag Hydrox-Simethicone Susp (30 mL) ONE (01:32)
[2017-07-13 01:49] VITALS: BP 117/76; PULSE 87; RESP 20; TEMP 98
[2017-07-14 13:25] VITALS: O2SAT 98
== END 2017-07-13 01:49 | disposition home or self-care (01) ==
LOC: C.ER 23:47
DX: N39.0 Urinary tract infection, site not specified (principal); B37.3 Candidiasis of vulva and vagina

== ENCOUNTER 2017-11-04 17:08 | Emergency (ER) | payer MEDICAID ==
[2017-11-04 17:08] VITALS: BMI 36.3
[2017-11-04 17:22] VITALS: O2SAT 100
[2017-11-04 17:44] LABS: HCG,QUALITATIVE URINE NEGATIVE (NEGATIVE)
[2017-11-04 17:53] LABS: SQUAMOUS EPITHIAL < 1 /hpf (0-5); URINE BACTERIA MOD (<OCC); URINE BILIRUBIN NEGATIVE (NEGATIVE); URINE BLOOD 2+ (NEGATIVE); URINE CLARITY Hazy (Clear); URINE COLOR Yellow (YELLOW); URINE GLUCOSE (UA) NORMAL (Normal); URINE LEUKOCYTE ESTERASE 3+ Leu/uL (Negative); URINE PROTEIN 1+ mg/dL (NEGATIVE); URINE UROBILINOGEN NORMAL mg/dL (0.2-1.0); WBC CLUMPS FEW /hpf
[2017-11-04 18:23] VITALS: PULSE 86; RESP 20; TEMP 98.6
--- NOTE | 2017-11-04 18:26 | C.PDOC ---
History Of Present Illness 42 y/o female presents to the ED with complaints of pelvic pain and painful urination since this morning. Patient denies any associated nausea, vomiting, fever, chills, incontinence, or urinary frequency. On arrival, patients blood pressure was also found to be elevated. Patient denies prior hx of hypertension. Also denies any current headache, chest pain, dizziness, or any neuro deficits. Time Seen by Provider: 11/04/17 17:29 Chief Complaint (Nursing): Abdominal Pain History Per: Patient History/Exam Limitations: no limitations Onset/Duration Of Symptoms: Hrs Current Symptoms Are (Timing): Still Present Past Medical History Reviewed: Historical Data, Nursing Documentation, Vital Signs Vital Signs: Last Vital Signs Temp 98.6 F 11/04/17 18:22 Pulse 86 11/04/17 18:22 Resp 20 11/04/17 18:22 BP 123/73 11/04/17 18:28 Pulse Ox 100 11/04/17 18:29 - Medical History PMH: Anxiety, Gastritis, HTN (pt denies) Surgical History: Cholecystectomy (02/19), (x 3) - [facility] Procedures BILAT TUBAL DIVISION NEC (09/28/13) LOW CERVICAL (09/28/13) Family History: States: Unknown Family Hx - Social History Hx Tobacco Use: No Hx Alcohol Use: No Hx Substance Use: No - Immunization History Hx Tetanus Toxoid Vaccination: Yes Hx Influenza Vaccination: Yes Hx Pneumococcal Vaccination: No Review Of Systems Except As Marked, All Systems Reviewed And Found Negative. Constitutional: Negative for: Fever, Chills Cardiovascular: Negative for: Chest Pain Gastrointestinal: Negative for: Nausea, Vomiting Genitourinary: Positive for: Dysuria, Pelvic Pain. Negative for: Frequency, Incontinence Neurological: Negative for: Headache, Dizziness Physical Exam - Physical Exam Appears: Non-toxic, No Acute Distress Skin: Normal Color, Warm, Dry Head: Atraumatic, Normacephalic Eye(s): bilateral: Normal Inspection Nose: Normal Oral Mucosa: Moist Neck: Normal ROM, Supple Chest: Symmetrical, No Deformity Cardiovascular: Rhythm Regular, No Murmur Respiratory: Normal Breath Sounds, No Accessory Muscle Use Gastrointestinal/Abdominal: Soft, Tenderness (Mild suprapubic tenderness), No Guarding, No Rebound Back: Normal Inspection, No CVA Tenderness Extremity: Bilateral: Atraumatic, Normal ROM Neurological/Psych: Oriented x3, Normal Speech, Normal Cranial Nerves Gait: Steady ED Course And Treatment O2 Sat by Pulse Oximetry: 100 (RA) Pulse Ox Interpretation: Normal Progress Note: UA and urine preg sent. Urine (+) for UTI. Patient treated with PO Macrobid and Pyridium in the ER. On reevaluation, patient remains AAOx3, afebrile, in no acute distress. Repeat vitals demonstrate blood pressure improved, 110/74. Patient advised to follow up with her PMD for further evaluation. Reassessment Condition: Improved Disposition Counseled Patient/Family Regarding: Studies Performed, Diagnosis, Need For Followup, Rx Given - Disposition Disposition: HOME/ ROUTINE Disposition Time: 18:30 Condition: STABLE Additional Instructions: Follow up with your PMD within 1-2 days. Return to ED if feel worse. 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 - Scribe Statement The provider has reviewed the documentation as recorded by the Scribe (Ayleen Seo) All medical record entries made by the Scribe were at my direction and personally dictated by me. I have reviewed the chart and agree that the record accurately reflects my personal performance of the history, physical exam, medical decision making, and the department course for this patient. I have also personally directed, reviewed, and agree with the discharge instructions and disposition.
[2017-11-04 18:28] VITALS: BP 123/73
== END 2017-11-04 18:40 | disposition home or self-care (01) ==
LOC: C.ER 17:08
DX: N39.0 Urinary tract infection, site not specified (principal)

== ENCOUNTER 2017-11-18 17:23 | Emergency (ER) | payer MEDICAID ==
[2017-11-18 17:24] VITALS: BMI 36.3
[2017-11-18 17:40] VITALS: BP 118/81; PULSE 82; RESP 18; TEMP 98.7; O2SAT 100
--- NOTE | 2017-11-18 17:53 | C.PDOC ---
History Of Present Illness 42-year-old female presents to the ED complaining of right mouth pain. States she had her wisdom tooth extracted 1 week ago. Reports she was discharged home without any medication and has been taking OTC Tylenol with minimal relief. Patient still has pain, prompting her to come in for evaluation. Her follow up appointment is in 2 weeks. No fever or chills. Time Seen by Provider: 11/18/17 17:46 Chief Complaint (Nursing): Dental Pain History Per: Patient History/Exam Limitations: no limitations Onset/Duration Of Symptoms: Days Current Symptoms Are (Timing): Still Present Past Medical History Reviewed: Historical Data, Nursing Documentation, Vital Signs Vital Signs: Last Vital Signs Temp 98.7 F 11/18/17 17:37 Pulse 82 11/18/17 17:37 Resp 18 11/18/17 17:37 BP 118/81 11/18/17 17:37 Pulse Ox 100 11/18/17 17:53 - Medical History PMH: Anxiety, Gastritis, HTN (pt denies) Surgical History: Cholecystectomy (02/19), (x 3) - [facility] Procedures BILAT TUBAL DIVISION NEC (09/28/13) LOW CERVICAL (09/28/13) Family History: States: Unknown Family Hx - Social History Hx Tobacco Use: No Hx Alcohol Use: No Hx Substance Use: No - Immunization History Hx Tetanus Toxoid Vaccination: Yes Hx Influenza Vaccination: Yes Hx Pneumococcal Vaccination: No Review Of Systems Except As Marked, All Systems Reviewed And Found Negative. Constitutional: Negative for: Fever, Chills ENT: Positive for: Mouth Pain Physical Exam - Physical Exam Appears: Non-toxic, No Acute Distress Skin: Warm, Dry, No Rash Head: Atraumatic, Normacephalic Eye(s): bilateral: Normal Inspection Oral Mucosa: Moist, Other Teeth: Other (wound to right upper molar, with mild gingival swelling; no open socket, blood, or pus) Throat: No Erythema, No Drooling Neck: Normal ROM, Supple Chest: Symmetrical Cardiovascular: Rhythm Regular, No Murmur Respiratory: Normal Breath Sounds, No Rales, No Rhonchi, No Wheezing Extremity: Bilateral: Atraumatic, Normal Color And Temperature, Normal ROM Neurological/Psych: Oriented x3, Normal Speech ED Course And Treatment O2 Sat by Pulse Oximetry: 100 (RA) Pulse Ox Interpretation: Normal Medical Decision Making Medical Decision Making: Impression: H/o tooth extraction Plan: * Motrin PO Patient is stable for discharge home, advised to follow up with surgeon. Given prescription for Motrin. Instructed to follow post-op wound care and take Motrin as prescribed. 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 - Scribe Statement The provider has reviewed the documentation as recorded by the Scribe (Ayleen Seo) All medical record entries made by the Scribe were at my direction and personally dictated by me. I have reviewed the chart and agree that the record accurately reflects my personal performance of the history, physical exam, medical decision making, and the department course for this patient. I have also personally directed, reviewed, and agree with the discharge instructions and disposition.
== END 2017-11-18 18:18 | disposition home or self-care (01) ==
LOC: C.ER 17:23
DX: K08.409 Partial loss of teeth, unspecified cause, unspecified class (principal)

== ENCOUNTER 2017-12-04 20:31 | Emergency (ER) | payer MEDICAID ==
[2017-12-04 20:32] VITALS: BMI 36.3
[2017-12-04 20:46] VITALS: O2SAT 100
--- NOTE | 2017-12-04 20:56 | C.PDOC ---
History Of Present Illness 42 y/o female presents to ED for complaints of abdominal pain that began 2 days ago. Patient also reports complaints of pelvic pain that began 3 days ago. Denies fever, nausea, vomiting, constipation, or diarrhea. Patient states she takes Metronidazole for colitis. Chief Complaint (Nursing): Abdominal Pain History Per: Patient History/Exam Limitations: no limitations Onset/Duration Of Symptoms: Hrs Current Symptoms Are (Timing): Still Present Location Of Pain/Discomfort: Diffuse Radiation Of Pain To:: None Quality Of Discomfort: Unable To Describe Associated Symptoms: denies: Fever, Chills, Nausea, Vomiting, Diarrhea, Urinary Symptoms Exacerbating Factors: None Alleviating Factors: None Last Bowel Movement: Today Recent travel outside of the [place]: No Abnormal Vaginal Bleeding: No Past Medical History Reviewed: Historical Data, Nursing Documentation, Vital Signs Vital Signs: Last Vital Signs Temp 98.5 F 12/04/17 20:41 Pulse 85 12/04/17 20:41 Resp 20 12/04/17 20:41 BP 126/83 12/04/17 20:41 Pulse Ox 100 12/05/17 01:05 - Medical History PMH: Anxiety, Gastritis, HTN (pt denies) Surgical History: Cholecystectomy (02/19), (x 3) - [facility] Procedures BILAT TUBAL DIVISION NEC (09/28/13) LOW CERVICAL (09/28/13) Family History: States: Unknown Family Hx - Social History Hx Tobacco Use: No Hx Alcohol Use: No Hx Substance Use: No - Immunization History Hx Tetanus Toxoid Vaccination: Yes Hx Influenza Vaccination: Yes Hx Pneumococcal Vaccination: No Review Of Systems Constitutional: Negative for: Fever, Chills Gastrointestinal: Positive for: Abdominal Pain. Negative for: Nausea, Vomiting , Diarrhea, Constipation Genitourinary: Positive for: Pelvic Pain. Negative for: Dysuria, Hematuria, Vaginal Discharge, Vaginal Bleeding Skin: Negative for: Rash Neurological: Negative for: Weakness, Numbness Physical Exam - Physical Exam Appears: Well, Non-toxic, No Acute Distress Skin: Normal Color, Warm, Dry Head: Atraumatic, Normacephalic Eye(s): bilateral: Normal Inspection, PERRL, EOMI Oral Mucosa: Moist Neck: Supple Chest: Symmetrical, No Tenderness Cardiovascular: Rhythm Regular, No Murmur Gastrointestinal/Abdominal: Soft, Tenderness (LLQ), No Distention, No Guarding, No Rebound Extremity: Normal ROM, No Tenderness, No Deformity, No Swelling Extremity: Bilateral: Atraumatic, Normal Color And Temperature, Normal ROM Neurological/Psych: Oriented x3, Normal Speech Gait: Steady ED Course And Treatment - Laboratory Results Result Diagrams: 12/04/17 21:00 12/04/17 21:00 O2 Sat by Pulse Oximetry: 100 (RA) Pulse Ox Interpretation: Normal - CT Scan/US CT Abdomen&Pelvis Other Rad Studies (CT/US): Read By Radiologist, Radiology Report Reviewed CT/US Interpretation: EXAM: CT Abdomen and Pelvis With Intravenous Contrast. CLINICAL HISTORY: 42 years old, female; Pain; Abdominal pain; Periumbilical; Additional info: Lower abd pain left> right,. HX of colitis. TECHNIQUE: Axial computed tomography images of the abdomen and pelvis with intravenous contrast. All CT. scans at this facility use at least one of these dose optimization techniques: automated exposure. control; mA and/or kV adjustment per patient size (includes targeted exams where dose is matched to. clinical indication); or iterative reconstruction. Coronal and sagittal reformatted images were created and reviewed. CONTRAST: 100 mL of visipaque 320 administered intravenously. COMPARISON: No relevant prior studies available. FINDINGS: Limitations: Motion artifact - moderate. Lung bases: No acute findings. ABDOMEN: Liver: Unremarkable. No mass. Gallbladder and bile ducts: Cholecystectomy. No significant ductal dilation. Pancreas: No ductal dilation. No mass. Spleen: No splenomegaly. Adrenals: No mass. Kidneys and ureters: Mild atrophy of kidneys. Too small to characterize lesion vs motion within. lower pole RIGHT kidney. No hydronephrosis. Stomach and bowel: Large amount of stool within colon. No definite mural thickening. No. obstruction. PELVIS: Appendix: No definite findings to suggest acute appendicitis. Bladder: Unremarkable. Reproductive: Heterogeneous, mildly lobulated uterus. Probable corpus luteum left ovary (coronal. image [id number]). ABDOMEN and PELVIS: Intraperitoneal space: Trace free fluid within pelvis. No free air. Bones/ joints: No acute fracture. Soft tissues: Unremarkable. Vasculature: Unremarkable. No aneurysm. Lymph nodes: No pathologically enlarged lymph nodes. IMPRESSION: 1. No definite acute intraabdominal abnormality within limitations of examination. 2. Probable fibroid uterus. 3. Incidental/non- acute findings are described above. Medical Decision Making Medical Decision Making: Administered Toradol and IV fluids. Ordered CT Abd& pelvis, blood work, and urinalsysis. Disposition Counseled Patient/Family Regarding: Diagnosis - Disposition Referrals: [facility] at [facility] [Outside] Disposition: HOME/ ROUTINE Disposition Time: :02 Condition: STABLE Prescriptions: Docusate Sodium [Colace] 100 mg PO ASDIR #20 capsule Naproxen 375 mg PO TIDPC #14 tablet Instructions: Ovarian Cysts, Uterine Fibroids, High Fiber Diet, Constipation, Adult (DC) Forms: [employer] (Puerto Rican), Gen Discharge Inst Khmer Print Language: GREEK - POA Present On Arrival: None - Clinical Impression Clinical Impression: Constipation, Fibroid, Ovarian cyst - Scribe Statement The provider has reviewed the documentation as recorded by the Pierreibmariaelena Pretty All medical record entries made by the Pierreibmariaelena were at my direction and personally dictated by me. I have reviewed the chart and agree that the record accurately reflects my personal performance of the history, physical exam, medical decision making, and the department course for this patient. I have also personally directed, reviewed, and agree with the discharge instructions and disposition.
[2017-12-04 21:06] LABS: BASO % 0.4 % (0.0-2.0); EOS # 0.1 K/uL (0.0-0.7); EOS % 1.6 % (0.0-4.0); HEMOGLOBIN 11.8 g/dL (11.0-16.0); LYMPH # 2.7 K/uL (1.0-4.3); LYMPH % 47.6 % (20.0-40.0); MEAN CELL VOLUME 85.1 fL (81.0-99.0); MEAN CORPUSCULAR HEMOGLOBIN 28.2 pg (27.0-31.0); MEAN CORPUSCULAR HGB CONC 33.1 g/dL (33.0-37.0); MEAN PLATELET VOLUME 8.6 fL (7.2-11.7); MONO # 0.5 K/uL (0.0-0.8); NEUT # 2.4 K/uL (1.8-7.0); NEUT % 42.4 % (50.0-75.0); NRBC % 0.1 % (0.0-2.0); RBC 4.17 Mil/uL (3.80-5.20); RED CELL DISTRIBUTION WIDTH 13.1 % (11.5-14.5); WHITE BLOOD COUNT 5.7 K/uL (4.8-10.8)
[2017-12-04 21:21] LABS: ALB/GLOB RATIO 1.3 (1.0-2.1); ALBUMIN 4.1 g/dL (3.5-5.0); ALT/SGPT 25 U/L (9-52); AST/SGOT 22 U/L (14-36); BLOOD UREA NITROGEN 12 mg/dL (7-17); CALCIUM 9.3 mg/dl (8.6-10.4); GFR AFRICAN-AMERICAN > 60; GFR NON-AFRICAN AMERICAN > 60; LIPASE 109 U/L (23-300)
[2017-12-04] MEDS ORDERED: Iohexol 240 (50 ml) ONE (21:44)
[2017-12-04] MEDS ORDERED: Sodium Chloride 0.9% 1,000 ML ONE (21:44)
[2017-12-04 21:46] LABS: HCG,QUALITATIVE URINE NEGATIVE (NEGATIVE); SQUAMOUS EPITHIAL < 1 /hpf (0-5); URINE BILIRUBIN NEGATIVE (NEGATIVE); URINE CLARITY Clear (Clear); URINE COLOR Colorless (YELLOW); URINE GLUCOSE (UA) NORMAL (Normal); URINE LEUKOCYTE ESTERASE NEG Leu/uL (Negative); URINE PROTEIN NEGATIVE (NEGATIVE); URINE UROBILINOGEN NORMAL mg/dL (0.2-1.0)
[2017-12-04] MEDS: Iohexol 240 (50 ml) PO ONE (21:46)
[2017-12-04] MEDS: Sodium Chloride 0.9% 1,000 ML IV ONE (21:46)
[2017-12-04 21:47] LABS: URINE BLOOD TRACE (NEGATIVE)
[2017-12-04] MEDS ORDERED: Iodixanol 320 MG/ML 100 ML BOTTLE IV ONE (22:04)
[2017-12-05] MEDS: Fleet Enema (Ped ) 67.5 ml RC ONE (01:17)
[2017-12-05 01:23] VITALS: BP 116/75; PULSE 80; RESP 18; TEMP 98
--- NOTE | 2017-12-05 09:31 | CT ---
Date of service: 12/04/2017 PROCEDURE: CT Abdomen and Pelvis with contrast HISTORY: lower abd pain left> right, Hx of colitis COMPARISON: None. TECHNIQUE: Contrast dose: Radiation dose: Total exam DLP = mGy-cm. This CT exam was performed using one or more of the following dose reduction techniques: Automated exposure control, adjustment of the mA and/or kV according to patient size, and/or use of iterative reconstruction technique. FINDINGS: LOWER THORAX: Unremarkable. LIVER: Unremarkable. No gross lesion or ductal dilatation. GALLBLADDER AND BILE DUCTS: Cholecystectomy.. PANCREAS: Unremarkable. No gross lesion or ductal dilatation. SPLEEN: Unremarkable. ADRENALS: Unremarkable. No mass. KIDNEYS AND URETERS: Unremarkable. No hydronephrosis. No solid mass. VASCULATURE: Unremarkable. No aortic aneurysm. BOWEL: Unremarkable. No obstruction. No gross mural thickening. APPENDIX: Normal appendix. PERITONEUM: Unremarkable. No free fluid. No free air. LYMPH NODES: Unremarkable. No enlarged lymph nodes. BLADDER: Unremarkable. REPRODUCTIVE: Unremarkable. BONES: No acute fracture. OTHER FINDINGS: None. IMPRESSION: Cholecystectomy..
== END 2017-12-05 01:27 | disposition home or self-care (01) ==
LOC: C.ER 20:31
DX: K59.00 Constipation, unspecified (principal); D25.9 Leiomyoma of uterus, unspecified; N83.209 Unspecified ovarian cyst, unspecified side
CPT/HCPCS: 74177; 80053; 81001; 83690; 84703; 85025; 96361; 96374; 99285; J1885; J7030; Q9966; Q9967

== ENCOUNTER 2018-02-04 17:10 | Emergency (ER) | payer MEDICAID ==
[2018-02-04 17:11] VITALS: BMI 36.3
[2018-02-04 17:26] VITALS: BP 105/69; PULSE 84; RESP 20; TEMP 98.6; O2SAT 99
[2018-02-04 17:51] LABS: HCG,QUALITATIVE URINE NEGATIVE (NEGATIVE)
[2018-02-04 17:53] LABS: URINE BACTERIA OCC (<OCC); URINE BILIRUBIN NEGATIVE (NEGATIVE); URINE BLOOD 3+ (NEGATIVE); URINE CLARITY Clear (Clear); URINE COLOR Straw (YELLOW); URINE GLUCOSE (UA) NORMAL (Normal); URINE LEUKOCYTE ESTERASE 3+ Leu/uL (Negative); URINE PROTEIN NEGATIVE (NEGATIVE); URINE UROBILINOGEN NORMAL mg/dL (0.2-1.0)
[2018-02-04] MEDS ORDERED: Tmp-Smz 800 mg-160 mg DS Tab PO STA (17:58)
[2018-02-04] MEDS ORDERED: Tmp-Smz 800 mg-160 mg DS Tab ONE (18:12)
--- NOTE | 2018-02-04 18:16 | C.PDOC ---
History Of Present Illness 42 year old female complains of dysuria, urinary frequency and urgency since today. Patient has history of UTI and this feels similar. In addition she also complains of sore throat, cough and congestion since this morning. Time Seen by Provider: 02/04/18 17:37 Chief Complaint (Nursing): Female Genitourinary History Per: Patient History/Exam Limitations: no limitations Onset/Duration Of Symptoms: Hrs Current Symptoms Are (Timing): Still Present Additional History Per: Patient Past Medical History Reviewed: Historical Data, Nursing Documentation, Vital Signs Vital Signs: Last Vital Signs Temp 98.6 F 02/04/18 17:24 Pulse 84 02/04/18 17:24 Resp 20 02/04/18 17:24 BP 105/69 02/04/18 17:24 Pulse Ox 99 02/04/18 17:24 - Medical History PMH: Anxiety, Gastritis, HTN (pt denies) Surgical History: Cholecystectomy (02/19), (x 3) - [facility] Procedures BILAT TUBAL DIVISION NEC (09/28/13) LOW CERVICAL (09/28/13) Family History: States: Unknown Family Hx - Social History Hx Tobacco Use: No Hx Alcohol Use: No Hx Substance Use: No - Immunization History Hx Tetanus Toxoid Vaccination: Yes Hx Influenza Vaccination: Yes Hx Pneumococcal Vaccination: No Review Of Systems ENT: Negative for: Nose Congestion, Throat Pain Respiratory: Negative for: Cough Genitourinary: Positive for: Dysuria, Frequency, Other (urgency ) Physical Exam - Physical Exam Appears: Non-toxic, No Acute Distress Skin: Normal Color, Warm, Dry Head: Atraumatic, Normacephalic Eye(s): bilateral: Normal Inspection Ear(s): Bilateral: Normal Nose: Normal, No Discharge Oral Mucosa: Moist Throat: Erythema (mild ), No Exudate Neck: Supple Chest: Symmetrical, No Deformity, No Tenderness Cardiovascular: Rhythm Regular, No Murmur Respiratory: Normal Breath Sounds, No Rales, No Rhonchi, No Wheezing Gastrointestinal/Abdominal: Soft, Tenderness (minimal suprapubic) Extremity: Normal ROM Neurological/Psych: Oriented x3, Normal Speech Gait: Steady ED Course And Treatment O2 Sat by Pulse Oximetry: 99 (on RA ) Pulse Ox Interpretation: Normal Medical Decision Making Medical Decision Making: Impression: dysuria, sore throat Plan: * UA, UCG, culture Progress: UA shows UTI will treat with pyridium and Bactrim. Other symptoms likely viral. Patient stable for discharge. Disposition Counseled Patient/Family Regarding: Diagnosis, Need For Followup, Rx Given - Disposition Referrals: Keron Saez MD [Staff Provider] - Disposition: HOME/ ROUTINE Disposition Time: 18:15 Condition: GOOD Additional Instructions: Rx sent to [facility] Take antibiotic twice daily and be sure to finish taking all of antibiotic. Drink plenty of fluids Follow up with your primary medical doctor or clinic in 2-5 days for further evaluation. Prescriptions: Sulfamethoxazole/Trimethoprim [Bactrim DS 800 mg-160 mg] 1 tab PO BID #14 tab Instructions: Urinary Tract Infections in Adults Forms: [employer] (Italian) Print Language: JAPANESE - POA Present On Arrival: None - Clinical Impression Clinical Impression: UTI (urinary tract infection), Upper respiratory infection - PA / JACK PRIZER / Resident Statement MD/DO has reviewed & agrees with the documentation as recorded. - Scribe Statement The provider has reviewed the documentation as recorded by the Scribe (Gabrielle Richmond) All medical record entries made by the Scribe were at my direction and personally dictated by me. I have reviewed the chart and agree that the record accurately reflects my personal performance of the history, physical exam, medical decision making, and the department course for this patient. I have also personally directed, reviewed, and agree with the discharge instructions and disposition.
== END 2018-02-04 18:29 | disposition home or self-care (01) ==
LOC: C.ER 17:10
DX: N39.0 Urinary tract infection, site not specified (principal); J06.9 Acute upper respiratory infection, unspecified

== ENCOUNTER 2018-06-07 19:08 | Emergency (ER) | payer MEDICAID ==
[2018-06-07 19:08] VITALS: BMI 36.3
[2018-06-07 19:41] VITALS: BP 130/84; PULSE 79; RESP 18; TEMP 99; O2SAT 100
--- NOTE | 2018-06-07 20:39 | C.PDOC ---
History Of Present Illness 43 year old female presents to the emergency department with complaints of insomnia, stress, and anxiety. Patient states that she has been unable to sleep for the last five days. Patient states that she attempted to see her doctor but wasn't able to be seen. Patient states that she was seen here a few years ago for the same complaint and was given a prescription which helped, and she is requesting the same treatment at this time. Patient denies suicidal/homicidal ideation. Time Seen by Provider: 06/07/18 19:49 Chief Complaint (Nursing): Medical Clearance History Per: Patient History/Exam Limitations: no limitations Onset/Duration Of Symptoms: Days (5) Current Symptoms Are (Timing): Still Present Past Medical History Reviewed: Historical Data, Nursing Documentation, Vital Signs Vital Signs: Last Vital Signs Temp 99.0 F 06/07/18 19:38 Pulse 79 06/07/18 19:38 Resp 18 06/07/18 19:38 BP 130/84 06/07/18 19:38 Pulse Ox 100 06/07/18 19:38 - Medical History PMH: Anxiety, Gastritis, HTN (pt denies) Surgical History: Cholecystectomy (02/19), (x 3) - [facility] Procedures BILAT TUBAL DIVISION NEC (09/28/13) LOW CERVICAL (09/28/13) Family History: States: No Known Family Hx - Social History Hx Tobacco Use: No Hx Alcohol Use: No Hx Substance Use: No - Immunization History Hx Tetanus Toxoid Vaccination: Yes Hx Influenza Vaccination: Yes Hx Pneumococcal Vaccination: No Review Of Systems Except As Marked, All Systems Reviewed And Found Negative. Psych: Positive for: Anxiety, Other (insomnia, stress). Negative for: Suicidal ideation Physical Exam - Physical Exam Appears: Non-toxic, No Acute Distress Skin: Normal Color, Warm, Dry Head: Atraumatic, Normacephalic Eye(s): bilateral: Normal Inspection, PERRL, EOMI Neck: Normal, Supple Chest: Symmetrical, No Tenderness Cardiovascular: Rhythm Regular, No Murmur Respiratory: Normal Breath Sounds, No Rales, No Rhonchi, No Wheezing Gastrointestinal/Abdominal: Soft, No Tenderness Extremity: Normal ROM Neurological/Psych: Oriented x3, Normal Speech, Normal Cognition ED Course And Treatment O2 Sat by Pulse Oximetry: 100 (RA) Pulse Ox Interpretation: Normal Medical Decision Making Medical Decision Making: Patientin ED for anxiety and insomnia. Plan: Ctisis evaluation for recommendation/ referral Pt was to be seen by crisis, but refused to be seen upon cleaner touch up worker arrival. Patient stated i just need medication " I'm not crazy " although it was explained to pt in czech that crisis counselor will help facilitate her management and make referral. Pt refused and left the ED prior to discharge. Disposition - Disposition Disposition Time: 20:00 Condition: STABLE Forms: [employer] (Georgian) - Clinical Impression Clinical Impression: Anxiety, Insomnia - PA / ENGINE CLEANER / Resident Statement MD/DO has reviewed & agrees with the documentation as recorded. - Scribe Statement The provider has reviewed the documentation as recorded by the Scribe (Addy Anand) All medical record entries made by the Scribe were at my direction and personally dictated by me. I have reviewed the chart and agree that the record accurately reflects my personal performance of the history, physical exam, medical decision making, and the department course for this patient. I have also personally directed, reviewed, and agree with the discharge instructions and disposition.
== END 2018-06-07 20:07 | disposition left against medical advice (07) ==
LOC: C.ER 19:08
DX: G47.00 Insomnia, unspecified (principal); F41.9 Anxiety disorder, unspecified

== ENCOUNTER 2018-07-14 17:10 | Emergency (ER) | payer MEDICAID ==
[2018-07-14 17:10] VITALS: BMI 36.3
[2018-07-14 17:57] VITALS: BP 117/73; PULSE 83; RESP 18; TEMP 98.3; O2SAT 100
--- NOTE | 2018-07-14 18:00 | C.PDOC ---
History Of Present Illness 43 y/o female presents to the ED complaining of a sore throat, subjective fever, and left ear pain for 1 day. No documented temp. Patient otherwise denies having body aches, cough, nausea, vomiting, diarrhea, or headaches. Time Seen by Provider: 07/14/18 17:49 Chief Complaint (Nursing): ENT Problem History Per: Patient History/Exam Limitations: no limitations Onset/Duration Of Symptoms: Days (x 1) Current Symptoms Are (Timing): Still Present Location Of Pain: Throat Past Medical History Reviewed: Historical Data, Nursing Documentation, Vital Signs Vital Signs: Last Vital Signs Temp 98.3 F 07/14/18 17:56 Pulse 83 07/14/18 17:56 Resp 18 07/14/18 17:56 BP 117/73 07/14/18 17:56 Pulse Ox 100 07/14/18 17:56 - Medical History PMH: Anxiety, Gastritis, HTN (pt denies) Surgical History: Cholecystectomy (02/19), (x 3) - [facility] Procedures BILAT TUBAL DIVISION NEC (09/28/13) LOW CERVICAL (09/28/13) Family History: States: Unknown Family Hx - Social History Hx Tobacco Use: No Hx Alcohol Use: No Hx Substance Use: No - Immunization History Hx Tetanus Toxoid Vaccination: Yes Hx Influenza Vaccination: Yes Hx Pneumococcal Vaccination: No Review Of Systems Constitutional: Positive for: Fever ENT: Positive for: Ear Pain (left), Throat Pain Cardiovascular: Negative for: Chest Pain Respiratory: Negative for: Cough, Shortness of Breath Gastrointestinal: Negative for: Nausea, Vomiting, Diarrhea Neurological: Negative for: Weakness, Headache Physical Exam - Physical Exam Appears: Non-toxic, No Acute Distress Skin: Warm, Dry, No Rash Head: Atraumatic, Normacephalic Eye(s): bilateral: Normal Inspection, PERRL, EOMI Ear(s): Bilateral: Normal (TMs clear) Oral Mucosa: Moist Throat: Erythema (Moderate pharyngeal erythema), Exudate, Other (No unilateral swelling, No hot potato voice) Neck: Normal ROM, Supple Chest: Symmetrical Pulses: Left Radial: Normal, Right Radial: Normal Neurological/Psych: Oriented x3, Normal Speech ED Course And Treatment O2 Sat by Pulse Oximetry: 100 (RA) Pulse Ox Interpretation: Normal Medical Decision Making Medical Decision Making: high centor criteria for strep iwll treat. lungs cta. pt well appearing. exudate phargynitits no e/o ofpta on exam. advise outpt fu and return precautions Plan: Patient will be discharged home with Amoxicillin, given initial dose in the ED. Disposition - Disposition Referrals: [facility] [Outside] [facility] [Outside] Burak Ramsey MD [Staff Provider] - Disposition: HOME/ ROUTINE Disposition Time: 18:00 Condition: STABLE Additional Instructions: please see your doctor/clinic. return to any er with worsening. Prescriptions: Amoxicillin 500 mg PO TID #30 tab Instructions: Sore Throat, Adult (DC) Forms: [employer] (Stateless) - Clinical Impression Clinical Impression: Pharyngitis - Scribe Statement The provider has reviewed the documentation as recorded by the Deion Seo Provider Attestation: All medical record entries made by the Deion were at my direction and personall y dictated by me. I have reviewed the chart and agree that the record accurately reflects my personal performance of the history, physical exam, medical decision making, and the department course for this patient. I have also personally directed, reviewed, and agree with the discharge instructions and disposition.
== END 2018-07-14 18:51 | disposition home or self-care (01) ==
LOC: C.ER 17:10
DX: J02.9 Acute pharyngitis, unspecified (principal)